=== PATIENT | female | born 1980 | race Caucasian/White ===

== ENCOUNTER 2017-07-21 02:43 | Inpatient (IN) | payer OTHER, MEDICAID ==
[2017-07-21] MEDS ORDERED: LACTATED RINGER'S 1,000 ML IV (04:02)
[2017-07-21] MEDS: LACTATED RINGER'S 1,000 ML IV (04:18)
[2017-07-21] MEDS: AMPICILLIN 2 GM/NS (PMX) 100 ML IV (04:20)
[2017-07-21 04:22] LABS: ADD MAN DIFF? NO
[2017-07-21 04:24] LABS: RUPTURE FETAL MEMBRANES POSITIVE (NEGATIVE)
[2017-07-21 04:25] LABS: WHITE BLOOD COUNT 7.3 10^3/ul (4.8-10.8)
[2017-07-21 04:25] LABS: BASOPHILS % 0.1 % (0.0-2.0); EOSINOPHILS % 0.6 % (0.0-7.0); HEMATOCRIT 36.5 % (37.0-47.0); HEMOGLOBIN 12.6 g/dl (12.0-16.0); LYMPHOCYTES # 1.8 10^3/ul (0.8-2.9); LYMPHOCYTES % 24.2 % (15.0-51.0); MEAN CORPUSCULAR HEMOGLOBIN 32.6 pg (29.0-33.0); MEAN CORPUSCULAR HGB CONC 34.5 g/dl (32.0-37.0); MEAN CORPUSCULAR VOLUME 94.6 fl (82.0-101.0); MEAN PLATELET VOLUME 10.2 fl (7.4-10.4); MONOCYTE # 0.6 10^3/ul (0.3-0.9); MONOCYTES % 8.1 % (0.0-11.0); NEUTROPHIL # 4.8 10^3/ul (1.6-7.5); NEUTROPHILS % 66.7 % (39.0-77.0); PLATELET COUNT 240 10^3/UL (140-415); RED BLOOD COUNT 3.86 10^6/ul (4.20-5.40)
[2017-07-21] MEDS ORDERED: METHYLERGONOVINE 0.2 MG INJ IM ×2 (04:30→12:30)
[2017-07-21] MEDS ORDERED: IBUPROFEN 600 MG TAB PO (04:30)
[2017-07-21] MEDS ORDERED: BUTORPHANOL 2 MG INJ IV (04:30)
[2017-07-21] MEDS ORDERED: OXYTOCIN 30 UNITS/LR 500 ML IV ×2 (04:30→12:30)
[2017-07-21] MEDS ORDERED: MISOPROSTOL 200 MCG TAB PR ×2 (04:30→12:30)
[2017-07-21] MEDS ORDERED: CARBOPROST 250 MCG INJ IM ×2 (04:30→12:30)
[2017-07-21 04:44] LABS: ALANINE AMINOTRANSFERASE 26 IU/L (13-69); ALBUMIN 3.7 g/dl (3.3-4.9); ALBUMIN/GLOBULIN RATIO 1.15; ALKALINE PHOSPHATASE 126 IU/L (42-121); ANION GAP 18 (8-16); ASPARTATE AMINO TRANSFERASE 22 IU/L (15-46); BILIRUBIN,INDIRECT 0.1 mg/dl (0-1.1); BILIRUBIN,TOTAL 0.1 mg/dl (0.2-1.3); BLOOD UREA NITROGEN 12 mg/dl (7-20); CALCIUM 9.1 mg/dl (8.4-10.2); CARBON DIOXIDE 24 mmol/L (21-31); CHLORIDE 105 mmol/L (97-110); CREATININE 0.45 mg/dl (0.44-1.00); GLUCOSE 98 mg/dl (70-220); POTASSIUM 4.2 mmol/L (3.5-5.1); SODIUM 143 mmol/L (135-144); TOTAL PROTEIN 6.9 g/dl (6.1-8.1)
[2017-07-21 04:45] LABS: INR 0.82; PROTIME 11.3 Sec (11.9-14.9); PT RATIO 0.9
[2017-07-21 04:46] LABS: PARTIAL THROMBOPLASTIN TIME 25.8 Sec (25.0-35.0)
[2017-07-21] MEDS: OXYTOCIN 30 UNITS/LR 500 ML IV ×3 (05:08→10:28)
[2017-07-21 05:13] LABS: HEPATITIS B SURFACE ANTIGEN NEGATIVE (NEGATIVE)
[2017-07-21] MEDS: MINERAL OIL LIGHT 10 ML VIAL TOP (05:40)
[2017-07-21] MEDS: LIDOCAINE 1% (MPF) 30 ML INJ INJ (05:40)
[2017-07-21] MEDS ORDERED: AMPICILLIN 1 GM/NS (PMX) 50 ML IV (08:30)
[2017-07-21] MEDS ORDERED: OXYCODONE/ASPIRIN (4.88/325) TAB PO ×2 (12:30)
[2017-07-21] MEDS ORDERED: ZOLPIDEM 5 MG TAB PO (12:30)
[2017-07-21] MEDS: IBUPROFEN 600 MG TAB PO ×3 (12:39→23:37)
[2017-07-21 13:30] LABS: ADD UMIC YES; UR ASCORBIC ACID NEGATIVE (NEGATIVE); UR BILIRUBIN (Dip) NEGATIVE (NEGATIVE); UR BLOOD (Dip) 1+ mg/dL (NEGATIVE); UR CLARITY CLEAR (CLEAR); UR COLOR STRAW (YELLOW); UR GLUCOSE (Dip) NEGATIVE (NEGATIVE); UR KETONES (Dip) NEGATIVE (NEGATIVE); UR LEUKOCYTE ESTERASE (Dip) NEGATIVE Leu/ul (NEGATIVE); UR NITRITE (Dip) NEGATIVE (NEGATIVE); UR RBC 1 /HPF (0-5); UR SPECIFIC GRAVITY (Dip) 1.005 (1.003-1.030); UR TOTAL PROTEIN (Dip) NEGATIVE (NEGATIVE); UR UROBILINOGEN (Dip) NEGATIVE (NEGATIVE); UR WBC 0 /HPF (0-5)
[2017-07-21] MEDS: BENZOCAINE 20% 56 ML SPRAY TOP (16:38)
[2017-07-21] MEDS: WITCH HAZEL/GLYCERIN PAD PR (16:38)
[2017-07-21] MEDS: LANOLIN 7 GM TUBE TOP (16:38)
[2017-07-21 16:44] LABS: RAPID PLASMA REAGIN NONREACTIVE (NR)
[2017-07-21] MEDS: SENNA/DOCUSATE NA (8.6MG/50MG) TAB PO (20:30)
[2017-07-22] MEDS: IBUPROFEN 600 MG TAB PO ×4 (06:18→23:25)
[2017-07-22] MEDS: SENNA/DOCUSATE NA (8.6MG/50MG) TAB PO ×2 (09:07→21:13)
[2017-07-22 09:46] LABS: ADD MAN DIFF? NO
[2017-07-22 09:53] LABS: WHITE BLOOD COUNT 7.3 10^3/ul (4.8-10.8)
[2017-07-22 09:53] LABS: BASOPHILS % 0.1 % (0.0-2.0); EOSINOPHILS # 0.1 10^3/ul (0.0-0.5); EOSINOPHILS % 1.1 % (0.0-7.0); HEMATOCRIT 34.4 % (37.0-47.0); HEMOGLOBIN 11.6 g/dl (12.0-16.0); LYMPHOCYTES # 1.6 10^3/ul (0.8-2.9); LYMPHOCYTES % 22.3 % (15.0-51.0); MEAN CORPUSCULAR HEMOGLOBIN 32.3 pg (29.0-33.0); MEAN CORPUSCULAR HGB CONC 33.7 g/dl (32.0-37.0); MEAN CORPUSCULAR VOLUME 95.8 fl (82.0-101.0); MEAN PLATELET VOLUME 10.3 fl (7.4-10.4); MONOCYTE # 0.4 10^3/ul (0.3-0.9); MONOCYTES % 4.8 % (0.0-11.0); NEUTROPHIL # 5.2 10^3/ul (1.6-7.5); NEUTROPHILS % 71.4 % (39.0-77.0); PLATELET COUNT 218 10^3/UL (140-415); RED BLOOD COUNT 3.59 10^6/ul (4.20-5.40); RED CELL DISTRIBUTION WIDTH 13.4 % (11.5-14.5)
[2017-07-23] MEDS: IBUPROFEN 600 MG TAB PO ×2 (05:39→12:02)
[2017-07-23] MEDS: SENNA/DOCUSATE NA (8.6MG/50MG) TAB PO (09:00)
[2017-07-23] MEDS: DIPHTH/TET/ACEL PERTUSS (ADULT) 0.5 ML VIAL IM* (09:07)
== END 2017-07-23 17:20 | disposition home or self-care (01) | DRG 775 ==
LOC: OBT 02:43 → L-D 02:43 → OBT 03:50 → L-D 03:50 → PP1 14:34
PROVIDERS: Obstetrics & Gynecology
PROC: 10E0XZZ Delivery of Products of Conception, External Approach (ICD-10-PCS; principal; 2017-07-21)
PROC: 0KQM0ZZ Repair Perineum Muscle, Open Approach (ICD-10-PCS; 2017-07-21)
DX: O70.1 Second degree perineal laceration during delivery (principal); Z37.0 Single live birth; O99.820 Streptococcus B carrier state complicating pregnancy; Z3A.38 38 weeks gestation of pregnancy
CPT/HCPCS: 76818; 80053; 81001; 84112; 84560; 85025; 85610; 85730; 86592; 86850; 86900; 86901; 87340